=== PATIENT | male | born 2000 | race African-American/Black ===

== ENCOUNTER 2019-01-06 15:06 | Emergency (ER) | payer SELFPAY ==
[~2019-01-06] VITALS: Ht 167.6 cm; Wt 66.2 kg
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
== END 2019-01-06 18:46 | disposition home or self-care (01) ==
LOC: ER 15:06
DX: S90.121A Contusion of right lesser toe(s) without damage to nail, initial encounter (principal); W22.03XA Walked into furniture, initial encounter; Y93.89 Activity, other specified; Z82.49 Family history of ischemic heart disease and other diseases of the circulatory system
CPT/HCPCS: 99282